=== PATIENT | male | born 1945 | race Caucasian/White ===

== ENCOUNTER 2018-01-14 14:28 | Emergency (ER) | payer MEDICARE ==
[~2018-01-14 14:28] MED LIST: ISOVUE-370 76%-LOCM 1 ML ONE
[2018-01-14 15:20] LABS: #Eosinphils 0.1 thou/uL (0.0-0.7); #Lymphocytes 1.5 thou/uL (1.20-3.40); #Monocytes 0.5 thou/uL (0.11-0.59); #Neutrophils 6.7 thou/uL (1.40-6.50); %Basophils 0.3 % (0.0-1.0); %Eosinophils 0.8 % (0.0-10.0); %Lymphocytes 16.8 % (21.0-51.0); %Monocytes 5.9 % (0.0-10.0); %Neutrophils 76.2 % (42.0-75.0); Mean Corpuscular HGB CONC 34.3 g/dL (32.0-36.0); Mean Corpuscular Hemoglobin 31.3 pg (27.0-31.0); Mean Corpuscular Volume 91.2 fl (80.0-94.0); Platelet Count 265 thou/uL (130-400); RBC Distribution Width 12.7 % (11.5-14.5); Red Blood Cell (RBC) Count 4.79 mill/uL (4.70-6.10); White Blood Cell (WBC) Count 8.8 thou/uL (4.8-10.8)
[2018-01-14 15:26] LABS: Prothrombin Time 13.2 SEC (12.0-14.7)
[2018-01-14 15:44] LABS: ALT (SGPT) 20 U/L (8-55); AST (SGOT) 15 U/L (5-34); Albumin 4.8 g/dL (3.4-4.8); Alkaline Phosphatase 49 U/L (40-150); Anion Gap 13 mmol/L (10-20); BUN (Urea Nitrogen) 20 mg/dL (8.4-25.7); Bilirubin, Total 1.8 mg/dL (0.2-1.2); CK (CPK) 86 U/L (30-200); Calc. Creatinine Clearance 0 mL/min (70-130); Calcium 9.9 mg/dL (7.8-10.44); Carbon Dioxide 29 mmol/L (23-31); Chloride 97 mmol/L (98-107); Estimated GFR-MDRD 45; Globulin 2.8 g/dL (2.4-3.5); Glucose 186 mg/dL (83-110); Potassium 3.7 mmol/L (3.5-5.1); Protein, Total 7.6 g/dL (5.8-8.1); Sodium 135 mmol/L (136-145)
[2018-01-14 15:48] LABS: CKMB 1.2 ng/mL (0-6.6); Troponin I Less than 0.010 ng/mL (< 0.028)
--- NOTE | 2018-01-14 16:39 | RAD ---
CHEST ONE VIEW 01/14/18 HISTORY: Near syncope. COMPARISON: None. FINDINGS: Lungs are slightly hypoinflated. No focal air space consolidation, pneumothorax or effusion. The card iac silhouette and mediastinal contours are within normal limits. No acute osseous abnormality. IMPRESSION: No significant thoracic abnormality. POS: [facility]
--- NOTE | 2018-01-14 17:39 | CT ---
CTA AORTIC DISSECTION PROTOCOL WITH IV CONTRAST AND 3D REFORMATTED IMAGING 01/14/18 INDICATION: Back pain with severe diaphoresis and dizziness. Concern for aortic dissection. FINDINGS: No aortic stenosis, occlusion, or aneurysmal formation is evident. The great vessels appears within n ormal limits. There is scattered vascular calcifications involving the aorta. The celiac, SMA, and re nal arteries are patent. 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 The YOLANDA is patent. Both common iker ac arteries and iliac bifurcations are patent. There is stable pulmonary nodules within the right lung base and right middle lobe. There is a sub 4 mm pulmonary nodule within the superior lingula. There are coronary artery calcifications. No enlarge d lymph nodes are evident. The right hepatic lobe cyst seen on comparison exam dated 02/19/15 is stable. The adrenal glands and ki dneys appear within normal limits. The pancreas and spleen appear within normal limits. There is a no rmal appendix in the right lower quadrant. There are a few scattered diverticula involving the colon. No acute osseous abnormality is evident. There is scattered degenerative and osteoarthritic change. IMPRESSION: No aortic stenosis, occlusion or aneurysmal formation demonstrated. POS: [facility]
== END 2018-01-14 18:25 | disposition home or self-care (01) ==
LOC: ERS 14:28
DX: R55 Syncope and collapse (principal); E11.9 Type 2 diabetes mellitus without complications; E78.5 Hyperlipidemia, unspecified; I10 Essential (primary) hypertension; Z87.891 Personal history of nicotine dependence; Z79.84 Long term (current) use of oral hypoglycemic drugs; Z79.899 Other long term (current) drug therapy
CPT/HCPCS: 71045; 71275; 80053; 82553; 83880; 84484; 85025; 85610; 85730; 93005; 94760; 96360; 96361